=== PATIENT | male | born 1995 | race African-American/Black ===

== ENCOUNTER 2019-04-22 16:23 | Emergency (ER) | payer OTHER ==
[2019-04-22 17:14] LABS: Protime INR 1.07
[2019-04-22 17:22] LABS: Absolute Lymphocytes (CBC) 1.6 K/uL (0.7-4.9); Basophils % 0.3 % (0-1.3); Hematocrit 39.8 % (39.6-49.0); Lymphocytes % 25.9 % (15.3-44.8); MPV 8.4 fL (7.6-11.3); RBC Red Blood Cell Count 4.89 M/uL (4.33-5.43)
[2019-04-22] MEDS ORDERED: FENTANYL CITR 100 MCG/2 ML ONE ×2 (17:31→19:18)
[2019-04-22 17:42] LABS: ALT/SGPT 21 U/L (12-78); AST/SGOT 12 U/L (15-37); Albumin 3.5 g/dL (3.4-5.0); Alkaline Phosphatase 69 U/L (45-117); BUN Blood Urea Nitrogen 10 mg/dL (7-18); Bicarbonate 24 mmol/L (21-32); Bilirubin Direct < 0.1 mg/dL (0-0.2); Bilirubin Total 0.2 mg/dL (0.2-1.0); Glucose Level 132 mg/dL (74-106); Magnesium 1.8 mg/dL (1.8-2.4); NT PRO-BNP 9 pg/mL (<125); Protein, Total 7.1 g/dL (6.4-8.2); Sodium Level 145 mmol/L (136-145); Troponin (Emerg Dept Use Only) < 0.02 ng/mL (0.0-0.045)
[2019-04-22] MEDS ORDERED: NA CHLORIDE 0.9% 1,000 ML ONE (17:53)
--- NOTE | 2019-04-22 18:58 | RAD REPORT ---
EXAM DESCRIPTION: Elida Single View04/22/2019 4:57 pm CLINICAL HISTORY: Chest pain COMPARISON: none FINDINGS: The lungs appear clear of acute infiltrate. The heart is normal size IMPRESSION: No acute abnormalities displayed
--- NOTE | 2019-04-22 19:26 | ER ---
Nurse's Notes [facility] Name: Tamera Verma Age: 23 yrs Sex: Male : 1995 Arrival Date: 04/22/2019 Time: 16:32 Bed 5 Private MD: Diagnosis: Angina pectoris Presentation: 04/22 16:33 Presenting complaint: EMS states: Substernal chest pain, radiate to left arm and leg, jl7 began 2 hours ago. Transition of care: patient was not received from another setting of care. Onset of symptoms was April 22, 2019 at 14:00. Risk Assessment: Do you want to hurt yourself or someone else? Patient reports no desire to harm self or others. Initial Sepsis Screen: Does the patient meet any 2 criteria? No. Patient's initial sepsis screen is negative. Does the patient have a suspected source of infection? No. Patient's initial sepsis screen is negative. Care prior to arrival: Medication(s) given: ASA, 325 mg, Nitro SL x 3 IV initiated. 18 GA, in the left antecubital area, Glucose check: 157. 16:33 Method Of Arrival: EMS: [facility] jl7 16:33 Acuity: EVIE 3 jl7 Historical: - Allergies: 16:38 No Known Allergies; jl7 - Home Meds: 16:38 aripiprazole 15 mg oral tab 1 tab once daily [Active]; divalproex 500 mg oral Tb24 1 jl7 tab once daily [Active]; propranolol 10 mg Oral tab [Active]; ProAir HFA 90 mcg/actuation inhalation HFAA [Active]; - PMHx: 16:38 Asthma; Bipolar disorder; Angina; Hypertension; jl7 - Immunization history:: Adult Immunizations up to date. - Social history:: Smoking status: Patient/guardian denies using tobacco. - Ebola Screening: : No symptoms or risks identified at this time. Screenin:55 Abuse screen: Denies threats or abuse. Denies injuries from another. Nutritional jl7 screening: No deficits noted. Tuberculosis screening: No symptoms or risk factors identified. Fall Risk IV access (20 points). Total Fonseca Fall Scale indicates No Risk (0-24 pts). Assessment: 16:40 General: Appears in no apparent distress. comfortable, well developed, well nourished, sg Behavior is calm, cooperative, appropriate for age, quiet. Pain: Complains of pain in chest Pain does not radiate. Quality of pain is described as aching. Neuro: Level of Consciousness is awake, alert, obeys commands, Oriented to person, place, time, situation, Water Pumping Station Engineer are equal bilaterally Moves all extremities. Speech is normal, Facial symmetry appears normal. Cardiovascular: Heart tones S1 S2 present Patient's skin is warm and dry. Chest pain is denied. Respiratory: Airway is patent Respiratory effort is even, unlabored, Respiratory pattern is regular, symmetrical, Breath sounds are clear bilaterally. Denies cough, shortness of breath labored breathing, Parent/caregiver reports the patient having pain with respiration pain with movement. GI: Abdomen is round non-distended, Reports tolerance of fluids, tolerance of food. : No signs and/or symptoms were reported regarding the genitourinary system. Derm: Skin is pink, warm \T\ dry. Musculoskeletal: Circulation, motion, and sensation intact. Capillary refill please note the pt is in handcuffs to bilateral wrists and foot shakles to bilateral ankles at this time, as he is a [employer] inmate. 17:40 Reassessment: Patient appears in no apparent distress at this time. Patient and/or sg family updated on plan of care and expected duration. Pain level reassessed. Patient is alert, oriented x 3, equal unlabored respirations, skin warm/dry/pink. Patient states symptoms have not improved. 18:40 Reassessment: Patient appears in no apparent distress at this time. Patient and/or sg family updated on plan of care and expected duration. Pain level reassessed. Patient is alert, oriented x 3, equal unlabored respirations, skin warm/dry/pink. Patient states symptoms have not improved. 19:27 General: Appears in no apparent distress. Behavior is calm, cooperative. Neuro: Level ak1 of Consciousness is awake, alert, obeys commands, Oriented to person, place, Water Pumping Station Engineer are equal bilaterally Moves all extremities. Cardiovascular: Rhythm is regular. Respiratory: Airway is patent Respiratory effort is even, unlabored. GI: No signs and/or symptoms were reported involving the gastrointestinal system. : No signs and/or symptoms were reported regarding the genitourinary system. EENT: No signs and/or symptoms were reported regarding the EENT system. 19:28 Pain: Pain began. ak1 Vital Signs: 16:38 BP 140 / 90; Pulse 124; Resp 20 S; Pulse Ox 99% on R/A; Pain 8/10; jl7 17:55 BP 129 / 76; Pulse 94; Resp 16; Temp 99(O); Pulse Ox 100% on R/A; jl7 18:30 BP 142 / 88; Pulse 112; Resp 17; Temp 98.2; Pulse Ox 100% on R/A; sg 19:42 BP 112 / 69; Pulse 100; Resp 20; Temp 98.2; Pulse Ox 98% on R/A; Pain 0/10; ak1 ED Course: 16:20 Initial lab(s) drawn, by me, sent to lab. Initial lab(s) drawn, by me, sent to lab. jl7 16:32 Patient arrived in ED. jl7 16:33 EKG done, by chief ultrasound technologist. reviewed by Henrik Villeda MD. 3 16:34 Triage completed. [facility] 16:36 Jorge Kay PA is PHCP. [facility] 16:36 Henrik Villeda MD is Attending Physician. [facility] 16:38 Arm band placed on right wrist. jl7 16:39 Rick Gasca, RN is Primary Nurse. sg 16:40 No provider procedures requiring assistance completed. Maintain EMS IV. Dressing jl7 intact. Good blood return noted. Site clean \T\ dry. Gauge \T\ site: 18 Right AC. Patient maintains SpO2 saturation greater than 95% on room air. 16:40 Patient has correct armband on for positive identification. Bed in low position. Call [facility] light in reach. Side rails up X2. Security at bedside. vehicle monitor technician on. Pulse ox on. NIBP on. Warm blanket given. 16:58 XRAY Chest (1 view) In Process Unspecified. EDMS 18:06 PHCP role handed off by Jorge Kay PA jr8 18:06 Luis Antonio Andrade PA is PHCP. jr8 18:20 Repeat lab(s) drawn. by me, sent to lab. Urine collected: clean catch specimen, clear. 3 18:36 EKG done, by ED staff, reviewed by Luis Antonio CABELLO. 3 19:43 IV discontinued, intact, bleeding controlled, No redness/swelling at site. Pressure ak1 dressing applied. Administered Medications: 17:55 Drug: NS 0.9% 1000 ml Route: IV; Rate: 1 bolus; Site: left antecubital; jl7 19:42 Follow up: IV Status: Completed infusion ak1 19:24 Drug: fentaNYL (PF) 50 mcg Route: IVP; Site: left antecubital; ak1 19:41 Follow up: Response: No adverse reaction ak1 19:41 Drug: Potassium Chloride 40 mEq Route: PO; ak1 19:41 Follow up: Response: No adverse reaction; Medication administered at discharge. ak1 Outcome: 19:24 Discharge ordered by . lanre 19:42 Discharged to Law Enforcement ak1 19:42 Condition: good 19:42 Discharge instructions given to family, Instructed on discharge instructions, follow up and referral plans. Demonstrated understanding of instructions, follow-up care. 19:43 Patient left the ED. ak1 Signatures: Dispatcher [employer] EDMS Rick Gasca RN RN Jorge Kay PA PA jmm Roszak, Josh, PA PA jr8 Sandy Earl RN RN ak1 Nelson Duarte RN RN jl7 Phyllis Gimenez 3 Shayna Coley 3
--- NOTE | 2019-04-22 19:27 | EDPHYS ---
Physician Documentation [facility] Name: Tamera Verma Age: 23 yrs Sex: Male : 1995 Arrival Date: 04/22/2019 Time: 16:32 Bed 5 Private MD: ED Physician Henrik Villeda HPI: 04/22 16:53 This 23 yrs old Black Male presents to ER via EMS with complaints of Chest Pain. [facility] 16:53 The patient or guardian reports chest pain that is located primarily in the substernal [facility] area. The pain radiates to the left arm. Associated signs and symptoms: Pertinent negatives: abdominal pain, cough, shortness of breath. The chest pain is described as sharp. This is a 23 year old male with a history of bipolar, HTN that presents to the ED with complaints of substernal chest pain which radiates to his left arm, and left leg beginning 2 hours prior. Patient states having a similar episodes 2 months ago. . Historical: - Allergies: 16:38 No Known Allergies; jl7 - Home Meds: 16:38 aripiprazole 15 mg oral tab 1 tab once daily [Active]; divalproex 500 mg oral Tb24 1 jl7 tab once daily [Active]; propranolol 10 mg Oral tab [Active]; ProAir HFA 90 mcg/actuation inhalation HFAA [Active]; - PMHx: 16:38 Asthma; Bipolar disorder; Angina; Hypertension; jl7 - Immunization history:: Adult Immunizations up to date. - Social history:: Smoking status: Patient/guardian denies using tobacco. - Ebola Screening: : No symptoms or risks identified at this time. ROS: 16:53 Constitutional: Negative for fever, chills, and weight loss. jmm 16:53 Respiratory: Negative for shortness of breath, cough, wheezing, and pleuritic chest pain, Abdomen/GI: Negative for abdominal pain, nausea, vomiting, diarrhea, and constipation, Back: Negative for injury and pain. 16:53 Cardiovascular: Positive for chest pain. 16:53 All other systems are negative. Exam: 16:53 Constitutional: This is a well developed, well nourished patient who is awake, alert, jmm and in no acute distress. Head/Face: atraumatic. Eyes: EOMI, no conjunctival erythema appreciated ENT: Moist Mucus Membranes Neck: Trachea midline, Supple Chest/axilla: Normal chest wall appearance and motion. 16:53 Back: Normal ROM Skin: General appearance color normal MS/ Extremity: Moves all extremities, no obvious deformities appreciated, no edema noted to the lower extremities Neuro: Awake and alert, normal gait Psych: Behavior is normal, Mood is normal, Patient is cooperative and pleasant 16:53 Cardiovascular: 16:53 Cardiovascular: Rate: tachycardic, Rhythm: regular, Pulses: no pulse deficits are appreciated. 16:53 Respiratory: the patient does not display signs of respiratory distress, Respirations: normal, Breath sounds: are clear throughout. 16:53 Abdomen/GI: Inspection: abdomen appears normal, Bowel sounds: normal, Palpation: abdomen is soft and non-tender. Vital Signs: 16:38 BP 140 / 90; Pulse 124; Resp 20 S; Pulse Ox 99% on R/A; Pain 8/10; jl7 17:55 BP 129 / 76; Pulse 94; Resp 16; Temp 99(O); Pulse Ox 100% on R/A; jl7 18:30 BP 142 / 88; Pulse 112; Resp 17; Temp 98.2; Pulse Ox 100% on R/A; sg 19:42 BP 112 / 69; Pulse 100; Resp 20; Temp 98.2; Pulse Ox 98% on R/A; Pain 0/10; ak1 MDM: 16:38 Patient medically screened. [facility] 18:06 Transition of care: After a detail discussion of the patient's case, care is [facility] transferred to Luis Antonio CABELLO. 19:20 Data reviewed: vital signs, nurses notes, EKG, radiologic studies, and as a result, I jr8 will discharge patient. Data interpreted: Pulse oximetry: on room air is 100 %. Interpretation: normal. Counseling: I had a detailed discussion with the patient and/or guardian regarding: the historical points, exam findings, and any diagnostic results supporting the discharge/admit diagnosis, lab results, radiology results. ED course: Troponin negative x2. Pt states pain has diminished, feeling better. . 04/22 16:41 Order name: Basic Metabolic Panel; Complete Time: 17:44 [facility] 04/22 16:41 Order name: CBC with Diff; Complete Time: 17:28 [facility] 04/22 16:41 Order name: LFT's; Complete Time: 17:44 [facility] 04/22 16:41 Order name: Magnesium; Complete Time: 17:44 [facility] 04/22 16:41 Order name: NT PRO-BNP; Complete Time: 17:44 [facility] 04/22 16:41 Order name: PT-INR; Complete Time: 17:21 [facility] 04/22 16:41 Order name: Troponin (emerg Dept Use Only); Complete Time: 17:44 [facility] 04/22 16:41 Order name: XRAY Chest (1 view); Complete Time: 19:03 [facility] 04/22 16:41 Order name: D-Dimer; Complete Time: 17:21 [facility] 04/22 17:45 Order name: Urine Drug Screen [facility] 04/22 17:47 Order name: Troponin (emerg Dept Use Only); Complete Time: 19:18 [facility] 04/22 16:41 Order name: EKG; Complete Time: 16:42 [facility] 04/22 16:41 Order name: Cardiac monitoring; Complete Time: 17:25 [facility] 04/22 16:41 Order name: EKG - Nurse/Tech; Complete Time: 17:25 [facility] 04/22 16:41 Order name: IV Saline Lock; Complete Time: 17:25 [facility] 04/22 16:41 Order name: Labs collected and sent; Complete Time: 17:25 [facility] 04/22 16:41 Order name: O2 Per Protocol; Complete Time: 17:25 [facility] 04/22 16:41 Order name: O2 Sat Monitoring; Complete Time: 17:25 jmm Administered Medications: 17:55 Drug: NS 0.9% 1000 ml Route: IV; Rate: 1 bolus; Site: left antecubital; jl7 19:42 Follow up: IV Status: Completed infusion ak1 19:24 Drug: fentaNYL (PF) 50 mcg Route: IVP; Site: left antecubital; ak1 19:41 Follow up: Response: No adverse reaction ak1 19:41 Drug: Potassium Chloride 40 mEq Route: PO; ak1 19:41 Follow up: Response: No adverse reaction; Medication administered at discharge. ak1 Disposition: 04/23 08:35 Co-signature as Attending Physician, Henrik Villeda MD I agree with the assessment and darinel plan of care. Disposition: 04/22/19 19:24 Discharged to Home. Impression: Angina pectoris. - Condition is Stable. - Discharge Instructions: Angina Pectoris, Nonspecific Chest Pain. - Medication Reconciliation Form, Thank You Letter form. - Follow up: Private Physician; When: 1 - 2 days; Reason: Recheck today's complaints, Continuance of care. - Problem is an acute exacerbation. - Symptoms have improved. Signatures: Dispatcher [employer] EDHenrik Mitchell MD MD cha Mickail, Joel, PA PA jmm Roszak, Josh, PA PA jr8 Sandy Earl RN RN ak1 Nelson Duarte RN RN jl7 Corrections: (The following items were deleted from the chart) 04/22 19:43 19:24 04/22/2019 19:24 Discharged to Home. Impression: Angina pectoris. Condition is ak1 Stable. Forms are Medication Reconciliation Form, Thank You Letter, Antibiotic Education, Prescription Opioid Use. Follow up: Private Physician; When: 1 - 2 days; Reason: Recheck today's complaints, Continuance of care. Problem is an acute exacerbation. Symptoms have improved. jr8
[2019-04-22] MEDS ORDERED: POTASSIUM CL SA 10 MEQ TAB PO ONE (19:37)
[2019-04-22 20:53] VITALS: TEMP 98.2
[2019-04-22 20:55] VITALS: BP 112/69; O2SAT 98
[2019-04-22 21:35] LABS: Barbiturates NEGATIVE (NEGATIVE); Benzodiazepines NEGATIVE (NEGATIVE); Cocaine NEGATIVE (NEGATIVE); METHAMPHETAM NEGATIVE (NEGATIVE); Methadone NEGATIVE (NEGATIVE); Opiates NEGATIVE (NEGATIVE); Phencyclidine NEGATIVE (NEGATIVE); THC Cannibis NEGATIVE (NEGATIVE)
--- NOTE | 2019-04-23 08:29 | EKG ---
Test Date: 2019-04-22 Test Time: 18:36:36 Window Shade Installer: [place]ISH MEASUREMENT RESULTS: Intervals: Rate: 106 VT: 152 QRSD: 90 QT: 318 QTc: 422 [place]: P: 63 VT: 152 QRS: 35 T: 12 INTERPRETIVE STATEMENTS: Sinus tachycardia Nonspecific T wave abnormality Abnormal ECG Compared to ECG 04/22/2019 16:30:38 No significant changes Electronically Signed On 04-23-19 08:28:28 CDT by Abraham Montenegro
--- NOTE | 2019-04-23 08:30 | EKG ---
Test Date: 2019-04-22 Test Time: 16:30:38 Product Marketing Engineer: JOVANY MEASUREMENT RESULTS: Intervals: Rate: 112 MS: 150 QRSD: 90 QT: 298 QTc: 406 [place]: P: 69 MS: 150 QRS: 33 T: 27 INTERPRETIVE STATEMENTS: Sinus tachycardia Nonspecific T wave abnormality Abnormal ECG No previous ECG available for comparison Electronically Signed On 04-23-19 08:28:38 CDT by Abraham Montenegro
== END 2019-04-22 19:43 | disposition home or self-care (01) ==
LOC: ER 16:23
DX: I20.9 Angina pectoris, unspecified (principal); I10 Essential (primary) hypertension; F31.9 Bipolar disorder, unspecified; J45.909 Unspecified asthma, uncomplicated
CPT/HCPCS: 36415; 71045; 80048; 80076; 80307; 83735; 83880; 84484; 85025; 85379; 85610; 93005; 96361; 96374; 99285; J3010; J7030